=== PATIENT | female | born 1980 | race Caucasian/White ===

== ENCOUNTER 2016-06-10 06:44 | Inpatient (IN) | payer BC, OTHER ==
[2016-06-10] VITALS (48 sets, daily range): BP systolic 107–165; BP diastolic 60–88
[~2016-06-10] VITALS: Ht 172.7 cm; Wt 68.0 kg
[~2016-06-10 06:44] MED LIST: ACET-789 PO; AMT10T PO; BCP PO; D5 LR IV SOLUTION 1,000 ML IV ONE; DICY20TA57 PO; HYDR-3454 PO; IBUP-1773 PO; PNT40TEC PO; TRAM-21 PO
--- OUTSIDE RECORDS SUMMARY | 2016-06-10 06:49 | XMS REPORT | Continuity of Care Document ---
Author Author [facility] Organization [facility] Address Unknown Phone Unavailable Care Team Providers Care Client Care Specialist Name Role Phone PCP Unavailable Source Comments Some departments are not documenting in the electronic medical record. If you do not see the information that you expected, contact Release of Information in the Health Information Management department at [phone] for further assistance in locating additional records.[facility] Active Allergies and Adverse Reactions Not on File Current Medications Not on file Active Problems Not on file Social History Tobacco Use Types Packs/Day Years Used Date Never Assessed Plan of Care Health Maintenance Due Date Last Done Comments Physical (Comprehensive) 1988 Exam Pertussis Vaccine 1992 Tetanus Vaccine 1998 Cervical Cancer Screening 2002 Influenza Vaccine 12/13/2015 Results from Last 3 Months Not on file
[2016-06-10] MEDS ORDERED: MINERAL OIL CONCENTRATE 99.9% 15 ML UDC TOP PRN (07:00)
[2016-06-10] MEDS: D5 LR IV SOLUTION 1,000 ML IV SCH ×3 (07:25→15:12)
[2016-06-10 08:00] LABS: BASOPHILS % (AUTO) 0 % (0-10); EOSINOPHILS # (AUTO) 0.1 10^3/uL (0.0-0.3); EOSINOPHILS % (AUTO) 1 % (0-10); LYMPHOCYTES # (AUTO) 1.7 X 10^3 (1.0-4.0); LYMPHOCYTES % (AUTO) 20 % (12-44); MEAN CORPUSCULAR HEMOGLOBIN 34 PG (25-34); MEAN CORPUSCULAR HGB CONC 36 G/DL (32-36); MEAN CORPUSCULAR VOLUME 97 FL (80-99); MONOCYTES # (AUTO) 0.4 X 10^3 (0.0-1.0); MONOCYTES % (AUTO) 5 % (0-12); NEUTROPHILS # (AUTO) 6.2 X 10^3 (1.8-7.8); NEUTROPHILS % (AUTO) 74 % (42-75); PLATELET COUNT 78 10^3/uL (130-400); RED BLOOD COUNT 3.72 10^6/uL (4.35-5.85); RED CELL DISTRIBUTION WIDTH 13.7 % (10.0-14.5); WHITE BLOOD COUNT 8.4 10^3/uL (4.3-11.0)
[2016-06-10] MEDS ORDERED: OXYTOCIN/NORMAL SALINE 500 ML IV ONE (08:38)
[2016-06-10] MEDS: OXYTOCIN/NORMAL SALINE 500 ML IV SCH ×2 (08:43→19:03)
--- NOTE | 2016-06-10 09:23 | History & Physical-OB ---
OB - Chief Complaint & HPI Date Date of Admission: Date of Admission: Jun 10, 2016 at 6:44 am Chief Complaint/History OB-Reason for Admission/Chief: Induction of Labor Hx : 1 Hx Para: 0 Expected Date of Delivery: Jul 01, 2016 Gestational Age in Weeks: 37 Indication for induction: medical complication Admission Nurse Assessment Rev: Yes History of Labs O pos Antibody neg RI RPR NR HBsAg NR HIV NR GC neg GBS neg Laboratory Tests 06/10/16 07:50: Basophils # (Auto) 0.0, Basophils (%) (Auto) 0, Eosinophils # (Auto) 0.1, Eosinophils (%) (Auto) 1, Hematocrit 36, Hemoglobin 12.8, Lymphocytes # (Auto) 1.7, Lymphocytes (%) (Auto) 20, Mean Corpuscular Hemoglobin 34, Mean Corpuscular Hemoglobin Concent 36, Mean Corpuscular Volume 97, Mean Platelet Volume 12.0H, Monocytes # (Auto) 0.4, Monocytes (%) (Auto) 5, Neutrophils # ( Auto) 6.2, Neutrophils (%) (Auto) 74, Platelet Count 78L, Red Blood Count 3.72L , Red Cell Distribution Width 13.7, White Blood Count 8.4 Allergies and Home Medications Allergies Coded Allergies: NKANo Known Allergies (Verified Allergy, Unknown, 08/12/06) Home Medications 1 TAB PO DAILY (Reported) Acetaminophen with Codeine 1 Each Tablet #50 1 EACH PO Q4H PRN PRN PAIN Prescribed by: ANNA DARNELL on 01/18/1538 Ibuprofen 600 Mg Tablet #60 600 MG PO Q6H Prescribed by: ANNA DARNELL on 01/18/15937 OB - History Hx of Present Care: Yes Ultrasounds: Abnormal US findings (2 vessel umbilical cord) Obstetrical Complications: Other (Gestational thrombocytopenia) Medical Complications: None Delivery History Hx Blood Disorders: No Patient Past Medical History Endometriosis OB - Admission Exam Physical Exam Vitals: Vital Signs 06/10/16 08:52 Temp 98.3 Pulse 117 Resp 18 B/P 112/74 Pulse Ox 96 O2 Delivery Room Air HEENT: NCAT Heart: Rhythm Normal Lungs: Clear Abdomen: Gravid Extremities: Normal Cervical Dilatation: 3cm Effacement: 75% Station: -1 Membranes: Intact Heart Rate: 130's Accelerations: Accelerations Present Decelerations: No Decelerations Short Term Variability: Present Mcc Variability: Average (6-25) Contractions on Admission: 6-10 Minutes Apart Intensity: Moderate Haq Scoring Tool (Modified) Dilation (cm): 3-4cm (2) Effacement (%): 51-79% (2) Descent/Station: -1,0 (2) Cervix Consistency: Soft (2) Cervix Position: Anterior (2) Subtract 1 point for: Nulliparity (-1) Haq Score: 9 Labs Laboratory Tests Test 06/10/16 07:50 Range/Units Basophils # (Auto) 0.0 0.0-0.1 10^3/uL Basophils (%) (Auto) 0 0-10 % Eosinophils # (Auto) 0.1 0.0-0.3 10^3/uL Eosinophils (%) (Auto) 1 0-10 % Hematocrit 36 35-52 % Hemoglobin 12.8 11.5-16.0 G/DL Lymphocytes # (Auto) 1.7 1.0-4.0 X 10^3 Lymphocytes (%) (Auto) 20 12-44 % Mean Corpuscular Hemoglobin 34 25-34 PG Mean Corpuscular Hemoglobin Concent 36 32-36 G/DL Mean Corpuscular Volume 97 80-99 FL Mean Platelet Volume 12.0 H 7.4-10.4 FL Monocytes # (Auto) 0.4 0.0-1.0 X 10^3 Monocytes (%) (Auto) 5 0-12 % Neutrophils # (Auto) 6.2 1.8-7.8 X 10^3 Neutrophils (%) (Auto) 74 42-75 % Platelet Count 78 L 130-400 10^3/uL Red Blood Count 3.72 L 4.35-5.85 10^6/uL Red Cell Distribution Width 13.7 10.0-14.5 % White Blood Count 8.4 4.3-11.0 10^3/uL OB - Assessment/Plan/Diagnosis Assessment Assessment: induction of labor Plan Plan: Induction Induction Method: AROM Discharge Diagnosis Diagnosis: 35 yo @ 37 weeks Gestational thrombocytopenia single umbilical artery GBS neg ANNA DARNELL DO Jun 10, 2016 9:23 am
[2016-06-10] MEDS: HYDROmorphone (DILAUDID) 2 MG/ML VIAL IVP PRN ×2 (11:13→14:13)
[2016-06-10] MEDS ORDERED: CATHETER FLUSH 10 ML SYR IV SCH ×2 (14:00→22:00)
[2016-06-10] MEDS ORDERED: LACTATED RINGERS 1,000 ML IV ONE ×2 (15:03→16:13)
[2016-06-10] MEDS ORDERED: SUFENTA 0.6MCG/ML BUPIVA 0.125 0 ML ONE (15:13)
[2016-06-10] MEDS ORDERED: fentaNYL INJECTION 100 MCG/2 ML AMP ONE (15:29)
[2016-06-10] MEDS ORDERED: BUPIVACAINE 0.25% 30 ML (SENSORCAINE) VIAL ONE (15:29)
[2016-06-10] MEDS ORDERED: LIDOCAINE PF 2% 10 ML (XYLOCAINE) AMP ONE (15:30)
[2016-06-10] MEDS ORDERED: fentaNYL INJECTION 100 MCG/2 ML AMP INJ ONE (16:15)
[2016-06-10] MEDS ORDERED: diphenhydrAMINE 50 MG/ML INJ (BENADRYL) IV PRN (16:15)
[2016-06-10] MEDS ORDERED: ONDANSETRON 4 MG/2 ML (SDV) Z0FRAN IV PRN (16:15)
[2016-06-10] MEDS ORDERED: LIDOCAINE/EPI 1%-1:200,000 (XYLOCAINE) 30 ML VIAL ONE (16:50)
[2016-06-10] MEDS ORDERED: HYDROmorphone (DILAUDID) 2 MG/ML VIAL IVP ONE (18:17)
[2016-06-10] MEDS ORDERED: METHYLERGONOVINE 0.2 MG/ML (METHERGINE) AMP ONE (18:19)
[2016-06-10] MEDS ORDERED: METHYLERGONOVINE 0.2 MG/ML (METHERGINE) AMP IM NR (18:30)
--- NOTE | 2016-06-10 18:32 | OB Labor & Delivery Record ---
L&D History History Expected Date of Delivery: Jul 01, 2016 Gestational Age in Weeks: 37 Hx : 1 Hx Para: 0 Complications Events: Routine care (Gestationa thrombocytopenia, 2 vessel cord) Operative Indications (Cesarea: N/A-Vaginal Delivery Intrapartal Events: None L&D Stage1 Stage One Onset of Labor - Date: Jun 10, 2016 Monitors and Tracing Monitor Mode: External Heart Rate: 135 Station: 0 Hospital Fellow Variability: Moderate (11-25) Short Term Variability: Present Presentation: Vertex Vital Signs VS - Last 72 Hours, by Label 06/10/16 06/10/16 06/10/16 06/10/16 06:45 07:15 08:00 08:23 Temp 96.2 Pulse 121 92 85 94 Resp 20 20 20 18 B/P 107/73 116/75 119/78 121/77 O2 Delivery Room Air Room Air Room Air Room Air 06/10/16 06/10/16 06/10/16 06/10/16 08:40 09:15 09:30 09:45 Temp 96.5 Pulse 75 91 104 Resp 20 18 20 B/P 125/77 128/77 120/81 O2 Delivery Room Air Room Air Room Air Room Air 06/10/16 06/10/16 06/10/16 06/10/16 10:00 10:15 10:15 10:30 Temp 96.4 96.4 Pulse 91 91 79 77 Resp 18 18 20 20 B/P 136/83 136/83 127/81 122/74 O2 Delivery Room Air Room Air Room Air Room Air 06/10/16 06/10/16 06/10/16 06/10/16 10:45 11:00 11:15 11:30 Temp 96.4 Pulse 70 70 79 74 Resp 20 20 20 20 B/P 123/79 123/75 116/80 124/81 O2 Delivery Room Air Room Air Room Air Room Air 06/10/16 06/10/16 06/10/16 06/10/16 11:45 12:05 12:20 12:45 Temp 96.4 96.4 Pulse 73 72 91 91 Resp 20 22 18 18 B/P 122/77 127/74 122/77 122/77 O2 Delivery Room Air Room Air Room Air 06/10/16 06/10/16 06/10/16 06/10/16 13:00 13:15 13:30 13:45 Pulse 70 67 67 67 Resp 20 20 20 20 B/P 133/75 132/72 132/72 132/72 Pulse Ox 100 100 100 O2 Delivery Room Air Room Air Room Air Room Air 06/10/16 06/10/16 06/10/16 06/10/16 14:00 14:15 14:30 15:00 Temp 95.7 Pulse 64 77 76 73 Resp 22 22 22 22 B/P 145/69 128/71 121/70 121/72 Pulse Ox 100 100 96 100 06/10/16 06/10/16 06/10/16 06/10/16 15:15 15:30 15:35 15:37 Pulse 76 76 69 82 Resp 22 22 20 20 B/P 154/81 145/66 132/60 145/66 Pulse Ox 100 100 100 100 06/10/16 15:39 Pulse 93 Resp 20 B/P 141/65 Pulse Ox 97 Rupture of Membranes Spontaneous Ruture of Membrane: No Amniotic Membrane Rupture Time: 08 Amniotic Membrane Fluid Desc.: Clear Vaginal Bleeding Description: Normal Show L&D Stage2 Stage Two Stage II Date: Jun 10, 2016 Monitors and Tracing Monitor Mode: External Heart Rate: 135 Monitor Decelerations: Variable Hospital Fellow Variability: Average (6-10) Short Term Variability: Present Position: Right Occiput Anterior Presentation: Vertex Cord Descript/Complications Cord Vessel Description: 2 Vessels Complications Nuchal cord x 1 Delivery Type Delivery Method: Spontaneous Vaginal Anterior Shoulder: Right Episiotomy/Perineal Laceration Laceraction(s)/Extensions: Yes Episiotomy Description: Midline Location Modifier: Medial Degree (describe repair) midline episiotomy repair in normal fashion Condition of Infant Delivery 1 minute Comment: 8 5 minute Comment: 9 Notes weight pending, skin to skin Condition of Condition of Infant: Living Exam: No Observed Abnormalities Resuscitation Resuscitation: N/A - Spontaneous Resp L&D Stage3 Stage Three Stage III Date: Jun 10, 2016 Pictocin Pitocin Administration mu/min: 6 Pitocin ml/hr: 2 Pitocin Administration Comment: Wide open 30 mu at delivery of placenta Placenta Delivery Placenta Delivery: Spontaneous Delivery Summary Summary blood loss >1000ml: No Vaginal blood loss >500ml: No 400 Attending at delivery: Anna Darnell DO Condition of Delivery Examined: Cervix Examined, Uterus Explored Post Hemorrhage: No Condition of Mother stable Condition of (s) stable ANNA DARNELL DO Jun 10, 2016 18:32
[2016-06-10] MEDS ORDERED: IBUPROFEN 600 MG (MOTRIN) TAB PO ONE (20:03)
[2016-06-10] MEDS ORDERED: WITCH HAZEL(TUCKS) 40 EA JAR TOP PRN (20:15)
[2016-06-10] MEDS ORDERED: BENZOCAINE/MENTHOL (DERMOPLAST) 56 ML CAN TP PRN (20:15)
[2016-06-10] MEDS ORDERED: MEASLES,MUMPS,RUBELLA 1 EA INJ SQ ONE (20:15)
[2016-06-10] MEDS ORDERED: TETANUS,DIPTH,PERTUSS P/F (BOOSTRIX) 0.5 ML VIAL IM ONE (20:15)
[2016-06-10] MEDS: IBUPROFEN 600 MG (MOTRIN) TAB PO SCH (20:26)
[2016-06-10] MEDS ORDERED: APAP 300 MG/CODEINE 30 MG (TYLENOL #3) TAB PO PRN (20:30)
[2016-06-11 00:50] VITALS: BP 107/75
[2016-06-11] MEDS: IBUPROFEN 600 MG (MOTRIN) TAB PO SCH ×3 (02:45→17:48)
[2016-06-11 05:39] LABS: BASOPHILS % (AUTO) 0 % (0-10); EOSINOPHILS % (AUTO) 0 % (0-10); LYMPHOCYTES # (AUTO) 1.7 X 10^3 (1.0-4.0); LYMPHOCYTES % (AUTO) 10 % (12-44); MEAN CORPUSCULAR HEMOGLOBIN 34 PG (25-34); MEAN CORPUSCULAR HGB CONC 35 G/DL (32-36); MEAN CORPUSCULAR VOLUME 97 FL (80-99); MEAN PLATELET VOLUME 11.4 FL (7.4-10.4); MONOCYTES % (AUTO) 6 % (0-12); NEUTROPHILS # (AUTO) 14.4 X 10^3 (1.8-7.8); NEUTROPHILS % (AUTO) 84 % (42-75); PLATELET COUNT 92 10^3/uL (130-400); RED BLOOD COUNT 3.16 10^6/uL (4.35-5.85); RED CELL DISTRIBUTION WIDTH 13.8 % (10.0-14.5); WHITE BLOOD COUNT 17.1 10^3/uL (4.3-11.0)
[2016-06-11 05:45] VITALS: BP 113/71
[2016-06-11 07:55] VITALS: BP 104/67
--- NOTE | 2016-06-11 08:01 | Postpartum Progress Note ---
Note Note Day # 1 Subjective: Patient is without complaints. Ambulating, voiding. Tolerating a regular diet without nausea or vomiting. Normal lochia. Pain is well controlled with oral pain medications. Wants to pump, bottle feeding. Objective: Vital Sign - Last 12Hours 06/10/16 06/11/16 06/11/16 20:15 00:50 05:45 Temp 98.8 97.9 Pulse 31 107 108 Resp 18 18 18 B/P 119/70 107/75 113/71 Pulse Ox 97 98 O2 Delivery Room Air Room Air Room Air Intake and Output 06/11/16 00:00 Intake Total 1500 ml Balance 1500 ml Physical Exam: General - Alert and oriented, no apparent distress Abdomen - Soft, appropriately tender to palpation, non-distended, fundus firm at umbilicus Extremities - no edema, negative Anastasiia's bilaterally Laboratory Tests 06/11/16 05:14: Basophils # (Auto) 0.0, Basophils (%) (Auto) 0, Eosinophils # (Auto) 0.0, Eosinophils (%) (Auto) 0, Hematocrit 31L, Hemoglobin 10.8L, Lymphocytes # (Auto ) 1.7, Lymphocytes (%) (Auto) 10L, Mean Corpuscular Hemoglobin 34, Mean Corpuscular Hemoglobin Concent 35, Mean Corpuscular Volume 97, Mean Platelet Volume 11.4H, Monocytes # (Auto) 1.0, Monocytes (%) (Auto) 6, Neutrophils # ( Auto) 14.4H, Neutrophils (%) (Auto) 84H, Platelet Count 92L, Red Blood Count 3.16L, Red Cell Distribution Width 13.8, White Blood Count 17.1H Assessment: 36 y/o post- day # 1, status post spontaneous vaginal delivery. Recovering well, hemodynamically stable Acute blood loss anemia Hgb 10.8 Gestational thrombocytopenia, improved (92K this AM, up from 78K on admission) Plan: Routine care. Encourage breast feeding. Encourage ambulation. Ferrous sulfate supplementation. Plan for discharge tomorrow Vitals - Labs Vital Signs - I&O Vital Signs Date Time Temp Pulse Resp B/P Pulse Ox O2 Delivery O2 Flow Rate FiO2 06/11/16 05:45 97.9 108 18 113/71 98 Room Air 06/11/16 00:50 98.8 107 18 107/75 97 Room Air 06/10/16 20:15 31 18 119/70 Room Air 06/10/16 20:00 93 18 128/76 Room Air 06/10/16 19:35 98.1 87 18 128/76 Room Air 06/10/16 19:20 98.6 107 18 119/76 Room Air 06/10/16 19:17 101 18 111/69 Room Air 06/10/16 19:02 100 18 113/71 Room Air 06/10/16 18:32 121 18 119/74 Room Air 06/10/16 18:17 97.6 120 18 126/70 Room Air 06/10/16 18:12 114 18 118/65 Room Air 06/10/16 18:03 96.5 116 18 117/63 Room Air 06/10/16 17:40 113 20 165/88 Room Air 06/10/16 17:20 Room Air 06/10/16 17:00 88 20 128/67 Room Air 06/10/16 16:45 81 20 138/82 100 Room Air 06/10/16 16:30 71 20 128/76 100 Room Air 06/10/16 16:10 96.4 77 20 132/81 100 Room Air 06/10/16 15:39 93 20 141/65 97 06/10/16 15:37 82 20 145/66 100 06/10/16 15:35 69 20 132/60 100 06/10/16 15:30 76 22 145/66 100 06/10/16 15:15 76 22 154/81 100 06/10/16 15:00 73 22 121/72 100 06/10/16 14:30 76 22 121/70 96 06/10/16 14:15 77 22 128/71 100 06/10/16 14:00 95.7 64 22 145/69 100 06/10/16 13:45 67 20 132/72 100 Room Air 06/10/16 13:30 67 20 132/72 100 Room Air 06/10/16 13:15 67 20 132/72 100 Room Air 06/10/16 13:00 70 20 133/75 Room Air 06/10/16 12:45 96.4 91 18 122/77 Room Air 06/10/16 12:20 96.4 91 18 122/77 Room Air 06/10/16 12:05 72 22 127/74 06/10/16 11:45 73 20 122/77 Room Air 06/10/16 11:30 96.4 74 20 124/81 Room Air 06/10/16 11:15 79 20 116/80 Room Air 06/10/16 11:00 70 20 123/75 Room Air 06/10/16 10:45 70 20 123/79 Room Air 06/10/16 10:30 77 20 122/74 Room Air 06/10/16 10:15 79 20 127/81 Room Air 06/10/16 10:15 96.4 91 18 136/83 Room Air 06/10/16 10:00 96.4 91 18 136/83 Room Air 06/10/16 09:45 104 20 120/81 Room Air 06/10/16 09:30 91 18 128/77 Room Air 06/10/16 09:15 96.5 75 20 125/77 Room Air 06/10/16 08:40 Room Air 06/10/16 08:23 94 18 121/77 Room Air 06/10/16 08:00 85 20 119/78 Room Air I & O 06/11/16 07:00 Intake Total 1500 ml Balance 1500 ml Labs Laboratory Tests 06/11/16 05:14: Basophils # (Auto) 0.0, Basophils (%) (Auto) 0, Eosinophils # (Auto) 0.0, Eosinophils (%) (Auto) 0, Hematocrit 31L, Hemoglobin 10.8L, Lymphocytes # (Auto ) 1.7, Lymphocytes (%) (Auto) 10L, Mean Corpuscular Hemoglobin 34, Mean Corpuscular Hemoglobin Concent 35, Mean Corpuscular Volume 97, Mean Platelet Volume 11.4H, Monocytes # (Auto) 1.0, Monocytes (%) (Auto) 6, Neutrophils # ( Auto) 14.4H, Neutrophils (%) (Auto) 84H, Platelet Count 92L, Red Blood Count 3.16L, Red Cell Distribution Width 13.8, White Blood Count 17.1H ISIAH NEVAREZ MD Jun 11, 2016 08:01
[2016-06-11] MEDS ORDERED: FERR-74 PO (08:03)
[2016-06-11] MEDS ORDERED: DOCU-143 PO (08:03)
[2016-06-11] MEDS ORDERED: ACET1TAB43 PO (08:03)
[2016-06-11] MEDS ORDERED: IBUP-1773 PO (08:03)
--- NOTE | 2016-06-11 08:04 | Discharge Inst-Women's Service ---
Discharge Inst-Women's Serv Depart Medication/Instructions New, Converted or Re-Newed RX: RX on Chart (and transmitted to pharmacy) Final Diagnosis , gestational thrombocytopenia Consults/Follow Up Additional Follow Up: Yes Orders/Referrals [address] Warren Activity Activity: Activity as Tolerated Driving Instructions: You May Drive (unless taking narcotic pain medications) NO SMOKING: NO SMOKING Nothing Inside Vagina: No Douching, No [place], No Tampons Diet Discharge Diet: No Restrictions Symptoms to Report to : Bleeding Excessive, Pain Increased, Fever Over 101 Degrees F, Pain/Pressure in Chest, Vaginal Bleeding Increase, Dizziness/Fainting , Nausea/Vomiting, Shortness of Breath For Any Problems or Questions: Contact Your Physician Skin/Wound Care Bathing Instructions: ISIAH Aguilera MD Jun 11, 2016 08:04
[2016-06-11] MEDS: FERROUS SULF 325 MG (IRON) TAB PO SCH (11:21)
--- NOTE | 2016-06-11 12:38 | Anesthesia-Regional Post-Op ---
Regional Patient Condition Mental Status: Alert, Oriented x3 Circulation: Same as Pre-Op Headache: Absent Sensation: Full Recovery Motor Block: Absent Post Op Complications Complications None Follow Up Care/Instructions Patient Instructions None needed. Anesthesia/Patient Condition Patient is doing well, no complaints, stable vital signs, no apparent adverse anesthesia problems. No complications reported per nursing. RANJIT RUVALCABA CRNA Jun 11, 2016 12:38
--- NOTE | 2016-06-11 13:06 | Anesthesia-Regional Post-Op ---
Regional Patient Condition Mental Status: Alert, Oriented x3 Circulation: Same as Pre-Op Headache: Absent Sensation: Full Recovery Motor Block: Absent Post Op Complications Complications None Follow Up Care/Instructions Patient Instructions None needed. Anesthesia/Patient Condition Patient is doing well, no complaints, stable vital signs, no apparent adverse anesthesia problems. No complications reported per nursing. DAVID RIVER CRNA Jun 11, 2016 13:06
[2016-06-11 14:15] VITALS: BP 109/74
[2016-06-11 20:00] VITALS: BP 131/79
[2016-06-11] MEDS ORDERED: DOCUSATE SODIUM 100 MG (COLACE) CAP PO ONE (21:36)
[2016-06-11] MEDS: APAP 300 MG/CODEINE 30 MG (TYLENOL #3) TAB PO PRN (21:41)
[2016-06-11] MEDS: DOCUSATE SODIUM 100 MG (COLACE) CAP PO SCH (21:41)
[2016-06-12 01:57] VITALS: BP 112/68
[2016-06-12] MEDS: IBUPROFEN 600 MG (MOTRIN) TAB PO SCH ×3 (01:57→08:48)
[2016-06-12] MEDS: APAP 300 MG/CODEINE 30 MG (TYLENOL #3) TAB PO PRN (05:44)
[2016-06-12 08:30] VITALS: BP 103/62
[2016-06-12] MEDS: DOCUSATE SODIUM 100 MG (COLACE) CAP PO SCH (08:47)
[2016-06-12] MEDS: FERROUS SULF 325 MG (IRON) TAB PO SCH (08:47)
--- NOTE | 2016-06-12 10:14 | Progress Note-Standard ---
Standard Progress Note Progress Notes/Assess & Plan Progress/Assessment & Plan Subjective: Patient is without complaints. Ambulating, voiding. Tolerating a regular diet without nausea or vomiting. Normal lochia. Pain is well controlled with oral pain medications. Wants to pump, bottle feeding. Objective: Vital Sign - Last 12Hours 06/12/16 06/12/16 01:57 08:30 Temp 97.8 98.2 Pulse 96 92 Resp 20 18 B/P 112/68 103/62 Pulse Ox 98 100 O2 Delivery Room Air Room Air Physical Exam: General - Alert and oriented, no apparent distress Abdomen - Soft, appropriately tender to palpation, non-distended, fundus firm at umbilicus Extremities - no edema, negative Anastasiia's bilaterally Assessment: 36 y/o post- day # 2, status post spontaneous vaginal delivery. Recovering well, hemodynamically stable Acute blood loss anemia Hgb 10.8 Gestational thrombocytopenia, improved (92K this AM, up from 78K on admission) Plan: Routine care. Encourage breast feeding. Encourage ambulation. Ferrous sulfate supplementation. Plan for discharge today ANNA DARNELL DO Jun 12, 2016 10:13 am
[2016-06-12 12:25] VITALS: BP 103/62
== END 2016-06-12 12:25 | disposition home or self-care (01) | DRG 775 ==
LOC: LDRP 06:44
PROVIDERS: ADMIT Obstetrics & Gynecology; ATTEND Obstetrics & Gynecology
PROC: 0W8NXZZ Division of Female Perineum, External Approach (ICD-10-PCS; principal; 2016-06-10)
PROC: 10907ZC Drainage of Amniotic Fluid, Therapeutic from Products of Conception, Via Natural or Artificial Opening (ICD-10-PCS; 2016-06-10)
PROC: 10E0XZZ Delivery of Products of Conception, External Approach (ICD-10-PCS; 2016-06-10)
DX: O99.12 Other diseases of the blood and blood-forming organs and certain disorders involving the immune mechanism complicating childbirth (principal); D69.6 Thrombocytopenia, unspecified; O69.81X0 Labor and delivery complicated by cord around neck, without compression, not applicable or unspecified; Z3A.37 37 weeks gestation of pregnancy; Z37.0 Single live birth; O90.81 Anemia of the puerperium; D62 Acute posthemorrhagic anemia
CPT/HCPCS: 36415; 85025; 86850; 86900; 86901

== ENCOUNTER 2016-07-13 06:58 | Emergency (ER) | payer OTHER ==
[~2016-07-13] VITALS: Ht 172.7 cm; Wt 68.0 kg
[~2016-07-13 06:58] MED LIST changes: +ACET1TAB43 PO; -D5 LR IV SOLUTION 1,000 ML IV ONE; +DOCU-143 PO; +FERR-74 PO
[2016-07-13] MEDS ORDERED: NS IV 1000 ML 1,000 ML IV SCH (07:45)
[2016-07-13] MEDS ORDERED: fentaNYL INJECTION 100 MCG/2 ML AMP IVP ONE ×2 (07:45→08:30)
[2016-07-13 07:49] LABS: BASOPHILS % (AUTO) 0 % (0-10); EOSINOPHILS # (AUTO) 0.1 10^3/uL (0.0-0.3); EOSINOPHILS % (AUTO) 3 % (0-10); LYMPHOCYTES # (AUTO) 1.4 X 10^3 (1.0-4.0); LYMPHOCYTES % (AUTO) 38 % (12-44); MEAN CORPUSCULAR HEMOGLOBIN 33 PG (25-34); MEAN CORPUSCULAR HGB CONC 34 G/DL (32-36); MEAN CORPUSCULAR VOLUME 95 FL (80-99); MEAN PLATELET VOLUME 11.4 FL (7.4-10.4); MONOCYTES # (AUTO) 0.2 X 10^3 (0.0-1.0); MONOCYTES % (AUTO) 5 % (0-12); NEUTROPHILS % (AUTO) 53 % (42-75); PLATELET COUNT 99 10^3/uL (130-400); RED BLOOD COUNT 3.91 10^6/uL (4.35-5.85); RED CELL DISTRIBUTION WIDTH 12.1 % (10.0-14.5); WHITE BLOOD COUNT 3.7 10^3/uL (4.3-11.0)
--- NOTE | 2016-07-13 07:53 | ED GU-Female ---
General Chief Complaint: -Female Stated Complaint: PASSED LARGE BLOOD CLOT Nursing Triage Note: PT STATES BEING 5 WKS POST , STARTED PASSING BLOOD MORE THAN A NORMAL PERIOD YESTERDAY, SPOKE WITH HER DR AND WAS GOING TO GO IN THURSDAY. THIS MORNING PT PASSED A CLOT ABOUT THE SIZE OF A BASEBALL, NO PAIN. Nursing Sepsis Screen: No Definite Risk Source: patient, family History of Present Illness Time seen by provider: 07:48 Initial Comments This 36 yo white female presents with persistent vaginal bleeding post- 5wks from a normal and vaginal delivery with Dr. Warren. The patient has had waxing and waning vaginal bleeding since her delivery. The patient's platlet count is normally low (150k). She was 70k p delivery but had increased before discharge from hospital to 90k. There is no family history of bleeding disorder. Allergies and Home Medications Allergies Coded Allergies: NKANo Known Allergies (Verified Allergy, Unknown, 08/12/06) Home Medications No Active Prescriptions or Reported Meds Constitutional: No chills, No fever EENTM: No blurred vision Respiratory: No cough Cardiovascular: No chest pain Gastrointestinal: No diarrhea, No vomiting Genitourinary: denies burning, denies discharge : No Musculoskeletal: No back pain Skin: No rash Psychiatric/Neurological: No Symptoms Reported Endocrine: No Symptoms Reported Hematologic/Lymphatic: No Symptoms Reported Past Nmnphba-[id number]-[id number] Hx Patient Social History Alcohol Use: Rarely Uses Recreational Drug Use: No Smoking Status: Never a Smoker Recent Foreign Travel: Yes Contact w/Someone Who Travel: Yes Recent Infectious Disease Expo: No Recent Hopitalizations: Yes (5 WKS POST ) Immunizations Up To Date PED Vaccines UTD: Yes Date of Influenza Vaccine: Mar 13, 2016 Seasonal Allergies Seasonal Allergies: No Surgeries HX Surgeries: Yes (LEFT ANKLE X2, DENTAL, dxls, EXPLOR ABD) Surgeries: Appendectomy Respiratory Hx Respiratory Disorders: No Cardiovascular Hx Cardiac Disorders: No Neurological Hx Neurological Disorders: No Reproductive System : No (5 WKS POST ) Hx Reproductive Disorders: No Sexually Transmitted Disease: No HIV/AIDS: No Female Reproductive Disorders: Denies, Endometriosis Genitourinary Hx Genitourinary Disorders: No Gastrointestinal Hx Gastrointestinal Disorders: No Musculoskeletal Hx Musculoskeletal Disorders: No Endocrine Hx Endocrine Disorders: No HEENT HX ENT Disorders: No Loss of Vision: Denies Hearing Impairment: Denies Cancer Hx Cancer: No Psychosocial Hx Psychiatric Problems: No Integumentary HX Skin/Integumentary Disorder: No Blood Transfusions Hx Blood Disorders: No Reviewed Nursing Assessment Reviewed/Agree w Nursing PMH: Yes Family Medical History Family Medial History: Hypertension 19 FATHER (50) Thyroid disease G8 SISTER (25) Physical Exam Vital Signs Vital Sign - Last 12Hours 07/13/16 07:06 Temp 96.7 Pulse 97 Resp 20 B/P (MAP) 125/86 Pulse Ox 100 O2 Delivery Room Air Capillary Refill : Less Than 3 Seconds General Appearance: WD/WN, no apparent distress HEENT: normal ENT inspection Neck: normal inspection Cardiovascular: regular rate, rhythm Respiratory: lungs clear, normal breath sounds Gastrointestinal: normal bowel sounds, non tender Genital/Rectal: tenderness, other (pelvic exam demonstrates a episiotomy in the midline that is healing well but is hog tender. The os is open with a small amount of mucinous tissue protruding from the os. The uterus is not particularly enlarged or tender. No significant adnexal masses were appreciated on bimanual exam. Cultures were obtained.) Back: normal inspection Extremities: normal range of motion, non-tender, normal inspection Progress/Results/Core Measures Results/Orders Lab Results Laboratory Tests Test 07/13/16 07:40 07/13/16 08:25 Range/Units White Blood Count 3.7 L 4.3-11.0 10^3/uL Red Blood Count 3.91 L 4.35-5.85 10^6/uL Hemoglobin 12.8 11.5-16.0 G/DL Hematocrit 37 35-52 % Mean Corpuscular Volume 95 80-99 FL Mean Corpuscular Hemoglobin 33 25-34 PG Mean Corpuscular Hemoglobin Concent 34 32-36 G/DL Red Cell Distribution Width 12.1 10.0-14.5 % Platelet Count 99 L 130-400 10^3/uL Mean Platelet Volume 11.4 H 7.4-10.4 FL Neutrophils (%) (Auto) 53 42-75 % Lymphocytes (%) (Auto) 38 12-44 % Monocytes (%) (Auto) 5 0-12 % Eosinophils (%) (Auto) 3 0-10 % Basophils (%) (Auto) 0 0-10 % Neutrophils # (Auto) 2.0 1.8-7.8 X 10^3 Lymphocytes # (Auto) 1.4 1.0-4.0 X 10^3 Monocytes # (Auto) 0.2 0.0-1.0 X 10^3 Eosinophils # (Auto) 0.1 0.0-0.3 10^3/uL Basophils # (Auto) 0.0 0.0-0.1 10^3/uL Prothrombin Time 14.2 12.2-14.7 SEC INR Comment 1.1 0.8-1.4 Sodium Level 143 135-145 MMOL/L Potassium Level 3.8 3.6-5.0 MMOL/L Chloride Level 109 H 98-107 MMOL/L Carbon Dioxide Level 24 21-32 MMOL/L Anion Gap 10 5-14 MMOL/L Blood Urea Nitrogen 9 7-18 MG/DL Creatinine 1.07 0.60-1.30 MG/DL Estimat Glomerular Filtration Rate 58 BUN/Creatinine Ratio 8 Glucose Level 89 70-105 MG/DL Calcium Level 9.1 8.5-10.1 MG/DL Total Bilirubin 0.5 0.1-1.0 MG/DL Aspartate Amino Transf (AST/SGOT) 15 5-34 U/L Alanine Aminotransferase (ALT/SGPT) 15 0-55 U/L Alkaline Phosphatase 77 40-136 U/L Total Protein 6.5 6.4-8.2 G/DL Albumin 4.0 3.2-4.5 G/DL Human Chorionic Gonadotropin, Quant 17 H <5 MIU/ML Urine Color YELLOW Urine Clarity SLIGHTLY CLOUDY Urine pH 5 5-9 Urine Specific Cuthbert 1.020 1.016-1.022 Urine Protein 1+ H NEGATIVE Urine Glucose (UA) NEGATIVE NEGATIVE Urine Ketones NEGATIVE NEGATIVE Urine Nitrite NEGATIVE NEGATIVE Urine Bilirubin NEGATIVE NEGATIVE Urine Urobilinogen NORMAL NORMAL MG/DL Urine Leukocyte Esterase 1+ H NEGATIVE Urine RBC (Auto) 5+ H NEGATIVE Urine RBC 25-50 H /HPF Urine WBC RARE /HPF Urine Squamous Epithelial Cells 10-25 H /HPF Urine Crystals NONE /LPF Urine Bacteria TRACE /HPF Urine Casts NONE /LPF Urine Mucus NEGATIVE /LPF Urine Culture Indicated NO Urine Test POSITIVE NEGATIVE My Orders Orders - ISRAEL HARMON MD Cbc With Automated Diff (07/13/16 07:39) Comprehensive Metabolic Panel (07/13/16 07:39) Protime With Inr (07/13/16 07:39) Fentanyl Injection (Sublimaze Injection (07/13/16 07:45) Ns Iv 1000 Ml (Sodium Chloride 0.9%) (07/13/16 07:45) Ua Culture If Indicated (07/13/16 07:59) Hcg,Qualitative Urine (07/13/16 07:59) Azithromycin Injection (Zithromax Inject (07/13/16 08:00) Fentanyl Injection (Sublimaze Injection (07/13/16 08:30) Hcg,Quantitative (07/13/16 08:40) Us Pelvic (Non Ob)93393 (07/13/16 07:40) Methylergonovine Tablet (Methergine Tabl (07/13/16 21:00) Ibuprofen Tablet (Motrin Tablet) (07/13/16 09:30) Medications Given in ED Current Medications Medications Dose Ordered Sig/[place] Route Start Time Stop Time Status Last Admin Dose Admin Azithromycin 1000 mg/Sodium Chloride 250 ml @ 250 mls/hr ONCE ONCE IV 07/13/16 08:00 07/13/16 08:59 DC 07/13/16 08:47 250 MLS/HR Fentanyl Citrate 50 mcg ONCE ONCE IVP 07/13/16 07:45 07/13/16 07:46 DC 07/13/16 07:50 50 MCG Fentanyl Citrate 50 mcg ONCE ONCE IVP 07/13/16 08:30 07/13/16 08:31 DC 07/13/16 08:29 50 MCG Vital Signs/I&O Vital Sign - Last 12Hours 07/13/16 07:06 Temp 96.7 Pulse 97 Resp 20 B/P (MAP) 125/86 Pulse Ox 100 O2 Delivery Room Air Blood Pressure Mean: 99 Progress Note : Time: 07:57 Progress Note I discussed patient's presentation with Dr. Villa. He recommended a gram of azithromycin IV for possible chlamydia. Ordered lab tests include platelet count and INR. Were waiting the results of the pelvic ultrasound. 935 a.m. The patient's ultrasound demonstrated 3.5 cm of retained blood products within the uterus. After consultation with the patient received 0.2 milligrams of Methergine orally 2 by one hour. The patient was asked to follow-up with Dr. Warren tomorrow. I gave her a small amount of tramadol for pain. She will use ibuprofen first 600 mg every 6 hours. Departure Impression Impression: Primary Impression: bleeding Qualified Codes: O72.1 - Other immediate hemorrhage Disposition: 01 HOME, SELF-CARE Condition: Improved Departure-Patient Inst. Decision time for Depature: 09:40 Referrals: BRIAN WILL MD (PCP) Primary Care Physician ANNA WARREN DO (Family) Primary Care Physician Add. Discharge Instructions: Follow-up with your level vial inside grinder tomorrow. Rest at home today. Return if any problems today. Motrin and/or Tramadol for pain. All discharge instructions reviewed with patient and/or family. Voiced understanding. Scripts No Active Prescriptions or Reported Meds ISRAEL HARMON MD Jul 13, 2016 07:53
[2016-07-13 07:59] LABS: INR 1.1 (0.8-1.4); PROTHROMBIN TIME PATIENT 14.2 SEC (12.2-14.7)
[2016-07-13] MEDS ORDERED: NS IV ONE (08:00)
[2016-07-13] MEDS ORDERED: AZITHROMYCIN IV ONE (08:00)
[2016-07-13 08:10] LABS: BILIRUBIN,TOTAL 0.5 MG/DL (0.1-1.0); CALCIUM 9.1 MG/DL (8.5-10.1); CREATININE SERUM 1.07 MG/DL (0.60-1.30); POTASSIUM 3.8 MMOL/L (3.6-5.0); TOTAL PROTEIN 6.5 G/DL (6.4-8.2)
[2016-07-13 08:36] LABS: BILIRUBIN,URINE NEGATIVE (NEGATIVE); KETONES,URINE NEGATIVE (NEGATIVE); LEUKOCYTE ESTERASE ,URINE 1+ (NEGATIVE); NITRITE,URINE NEGATIVE (NEGATIVE); PH,URINE 5 (5-9); PROTEIN,URINE 1+ (NEGATIVE); UROBILINOGEN,URINE NORMAL (NORMAL)
[2016-07-13 08:48] LABS: WBC,URINE RARE /HPF
--- NOTE | 2016-07-13 09:03 | Diagnostic Imaging Report ---
PROCEDURE: US PELVIC (NON OB) TECHNIQUE: Multiple real-time grayscale images were obtained over the pelvis in various projections transabdominally. IMPRESSION: Bleeding, passing large blood clots Comparison: December 28, 2014. Findings: The uterus is mildly enlarged measuring 10.6 x 7.9 x 6.3 cm. The endometrial stripe appears significantly thickened measuring up to 3.7 cm. Additionally, this appears to be slightly hyperemic. The bilateral ovaries were unable to be visualized. No abnormal adnexal mass lesion seen. No significant free fluid. IMPRESSION: Significant thickening of the endometrium with associated hyperechoic material measuring up to 3.7 cm. Findings are felt to relate to retained blood products. Dictated by: Dictated on workstation # [id number]
[2016-07-13] MEDS ORDERED: IBUPROFEN 600 MG (MOTRIN) TAB PO ONE (09:30)
[2016-07-13 10:00] VITALS: BP 100/71
[2016-07-13] MEDS ORDERED: METHYLERGONOVINE 0.2 MG (MEHTERGINE) TAB PO ONE (21:00)
--- OUTSIDE RECORDS SUMMARY | 2016-08-05 11:43 | XMS REPORT | Continuity of Care Document ---
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 If you do not see the information that you expected, contact Release of Information in the Health Information Management department at [phone] for further assistance in locating additional records.[facility] Active Allergies and Adverse Reactions Not on File Current Medications Not on file Active Problems Not on file Social History Tobacco Use Types Packs/Day Years Used Date Never Assessed Plan of Care Health Maintenance Due Date Last Done Comments Physical (Comprehensive) 1988 Exam Pertussis Vaccine 1992 Tetanus Vaccine 1998 Cervical Cancer Screening 2002 Influenza Vaccine 12/12/2016 Results from Last 3 Months Not on file
--- OUTSIDE RECORDS SUMMARY | 2016-08-05 11:44 | XMS REPORT | Continuity of Care Document ---
Author Author [facility] Organization [facility] Address Unknown Phone Unavailable Allergies Active Description Code Type Severity Reaction Onset Reported/Identified Relationship to Patient Clinical Status Yes NKANo Known Allergies NKA Miscellaneous Allergy Unknown N/ A 08/12/2006 Medications Problems Date Dx Coded Attending Type Code Diagnosis Diagnosed By 05/23/2013 CAROLYN SWANSON, KRISTEN Jones Ot 540.9 07/06/2014 Ot 789.00 07/14/2014 Ot 789.09 09/08/2014 CAROLYN SWANSON, KRISTEN Jones Ot 789.00 09/08/2014 CAROLYN SWANSON, KRISTEN Jones Ot V72.63 09/08/2014 CAROLYN SWANSON, KRISTEN Jones Ot V74.8 09/08/2014 CAROLYN SWANSON, KRISTEN Jones Ot 701.4 09/27/2014 CAROLYN SWANSON, KRISTEN Jones Ot 789.00 09/27/2014 CAROLYN SWANSON, KRISTEN Jones Ot V72.63 09/27/2014 CAROLYN SWANSON, KRISTEN Jones Ot V74.8 10/20/2014 CRICKET SWANSON, ANASTASIA Lindquist Ot 724.5 10/20/2014 CRICKET SWANSON, ANASTASIA Lindquist Ot 789.00 10/20/2014 Ot 789.00 10/20/2014 Ot 789.09 11/15/2014 CAROLYN SWANSON, KRISTEN Jones Ot 789.00 11/15/2014 CAROLYN SWANSON, KRISTEN Jones Ot V72.63 11/15/2014 CAROLYN SWANSON, KRISTEN Jones Ot V74.8 01/12/2015 NICOLETTE SWANSON, BRIAN Navarro Ot 625.9 01/18/2015 ANNA DARNELL DO S Ot N73.6 FEMALE PELVIC PERITONEAL ADHESIONS (POST 01/18/2015 ANNA DARNELL DO S Ot N80.1 ENDOMETRIOSIS OF OVARY 01/18/2015 ANNA DARNELL DO S Ot N80.3 ENDOMETRIOSIS OF PELVIC PERITONEUM 02/07/2015 ANNA DARNELL DO S Ot R10.32 02/07/2015 ANNA DARNELL DO S Ot Z01.812 02/07/2015 MANN DAY ANNA Yip Ot Z11.2 06/10/2016 MANN DAY ANNA Yip Ot R10.32 LEFT LOWER QUADRANT PAIN 06/10/2016 MANN DAY ANNA Yip Shamar Z01.812 ENCOUNTER FOR PREPROCEDURAL LABORATORY E 06/10/2016 ANNA DARNELL DO Ot Z11.2 ENCOUNTER FOR SCREENING FOR OTHER BACTER 06/12/2016 MANN DAY ANNA Theodora Ot D62 ACUTE POSTHEMORRHAGIC ANEMIA 06/12/2016 MANN DAY ANNA Yip Ot D69.6 THROMBOCYTOPENIA, UNSPECIFIED 06/12/2016 MANN DAY ANNA Yip Ot O69.81X0 LABOR AND DEL COMP BY CORD AROUND NECK , 06/12/2016 MANN DAY ANNA Yip Shamar O90.81 ANEMIA OF THE PUERPERIUM 06/12/2016 MANN DAY ANNA Yip Shamar O99.12 OTH DIS OF THE BLD/BLD-FORM ORG/IMMUN ME 06/12/2016 MANN DAY ANNA Yip Shamar Z37.0 SINGLE LIVE 06/12/2016 MANN DAY ANNA Yip Ot Z3A.37 37 WEEKS GESTATION OF 07/15/2016 EDEN SWANSON, ISRAEL Yip Ot N93.9 ABNORMAL UTERINE AND VAGINAL BLEEDING, U 07/15/2016 ISRAEL HARMON MD, Ot O72.2 DELAYED AND SECONDARY HEMORRH Procedures Code Description Performed By Performed On [id number] DIVISION OF FEMALE PERINEUM, EXTERNAL AP 06/10/2016 28593WG DRAINAGE OF AMNIOTIC FL, THERAP FROM POC 06/10/2016 37T2GWA DELIVERY OF PRODUCTS OF CONCEPTION, EXTE 06/10/2016 Results Test Result Range Complete blood count (CBC) with automated white blood cell (WBC) differential - 06/10/16 07:50 Blood leukocytes automated count (number/volume) 8.4 10*3/ uL 4.3-11.0 Blood erythrocytes automated count (number/volume) 3.72 10*6 /uL 4.35-5.85 Venous blood hemoglobin measurement (mass/volume) 12.8 g/dL 11.5-16.0 Blood hematocrit (volume fraction) 36 % 35-52 Automated erythrocyte mean corpuscular volume 97 [foz_us] 80-99 Automated erythrocyte mean corpuscular hemoglobin (mass per erythrocyte) 34 pg 25-34 Automated erythrocyte mean corpuscular hemoglobin concentration measurement ( mass/volume) 36 g/dL 32-36 Automated erythrocyte distribution width ratio 13.7 % 10.0-14.5 Automated blood platelet count (count/volume) 78 10*3/uL 130-400 Automated blood platelet mean volume measurement 12.0 [foz_ us] 7.4-10.4 Automated blood neutrophils/100 leukocytes 74 % 42-75 Automated blood lymphocytes/100 leukocytes 20 % 12-44 Blood monocytes/100 leukocytes 5 % 0-12 Automated blood eosinophils/100 leukocytes 1 % 0-10 Automated blood basophils/100 leukocytes 0 % 0-10 Blood neutrophils automated count (number/volume) 6.2 10*3 1.8-7.8 Blood lymphocytes automated count (number/volume) 1.7 10*3 1.0-4.0 Blood monocytes automated count (number/volume) 0.4 10*3 0.0-1.0 Automated eosinophil count 0.1 10*3/uL 0.0-0.3 Automated blood basophil count (count/volume) 0.0 10*3/uL 0.0-0.1 Blood type T Indirect antibody screen panel - 06/10/16 07:50 ABO+Rh group OP NRG Transfusion band number [id number] Blood group antibody screen NEGATIVE [facility] Complete blood count (CBC) with automated white blood cell (WBC) differential - 06/11/16 05:14 Blood leukocytes automated count (number/volume) 17.1 10*3/ uL 4.3-11.0 Blood erythrocytes automated count (number/volume) 3.16 10*6 /uL 4.35-5.85 Venous blood hemoglobin measurement (mass/volume) 10.8 g/dL 11.5-16.0 Blood hematocrit (volume fraction) 31 % 35-52 Automated erythrocyte mean corpuscular volume 97 [foz_us] 80-99 Automated erythrocyte mean corpuscular hemoglobin (mass per erythrocyte) 34 pg 25-34 Automated erythrocyte mean corpuscular hemoglobin concentration measurement ( mass/volume) 35 g/dL 32-36 Automated erythrocyte distribution width ratio 13.8 % 10.0-14.5 Automated blood platelet count (count/volume) 92 10*3/uL 130-400 Automated blood platelet mean volume measurement 11.4 [foz_ us] 7.4-10.4 Automated blood neutrophils/100 leukocytes 84 % 42-75 Automated blood lymphocytes/100 leukocytes 10 % 12-44 Blood monocytes/100 leukocytes 6 % 0-12 Automated blood eosinophils/100 leukocytes 0 % 0-10 Automated blood basophils/100 leukocytes 0 % 0-10 Blood neutrophils automated count (number/volume) 14.4 10*3 1.8-7.8 Blood lymphocytes automated count (number/volume) 1.7 10*3 1.0-4.0 Blood monocytes automated count (number/volume) 1.0 10*3 0.0-1.0 Automated eosinophil count 0.0 10*3/uL 0.0-0.3 Automated blood basophil count (count/volume) 0.0 10*3/uL 0.0-0.1 Bacteria identification in genital specimen by aerobe culture - 07/13/16 07:30 FREE TEXT EXTERNAL AT PRESENT NRG QUANTITY OF GROWTH Isolated NRG Bacteria identification in genital specimen by aerobe culture [id number] NRG Microscopic examination by FARZANEH preparation - 07/13/16 07:30 Microscopic examination by FARZANEH preparation TNP NRG Microscopic examination by wet preparation - 07/13/16 07:30 WET PREP RESULTS NO CLUE CELLS OBSERVED NRG Neisseria gonorrhoeae DNA detection by probe and signal amplification method - 07/13/16 07:30 Gonorrhea amp DNA-urine Negative Negative Chlamydia trachomatis DNA detection by probe and signal amplification method - 07/13/16 07:30 Chlamydia trachomatis DNA detection by probe and target amplification method Negative Negative Complete blood count (CBC) with automated white blood cell (WBC) differential - 07/13/16 07:40 Blood leukocytes automated count (number/volume) 3.7 10*3/ uL 4.3-11.0 Blood erythrocytes automated count (number/volume) 3.91 10*6 /uL 4.35-5.85 Venous blood hemoglobin measurement (mass/volume) 12.8 g/dL 11.5-16.0 Blood hematocrit (volume fraction) 37 % 35-52 Automated erythrocyte mean corpuscular volume 95 [foz_us] 80-99 Automated erythrocyte mean corpuscular hemoglobin (mass per erythrocyte) 33 pg 25-34 Automated erythrocyte mean corpuscular hemoglobin concentration measurement ( mass/volume) 34 g/dL 32-36 Automated erythrocyte distribution width ratio 12.1 % 10.0-14.5 Automated blood platelet count (count/volume) 99 10*3/uL 130-400 Automated blood platelet mean volume measurement 11.4 [foz_ us] 7.4-10.4 Automated blood neutrophils/100 leukocytes 53 % 42-75 Automated blood lymphocytes/100 leukocytes 38 % 12-44 Blood monocytes/100 leukocytes 5 % 0-12 Automated blood eosinophils/100 leukocytes 3 % 0-10 Automated blood basophils/100 leukocytes 0 % 0-10 Blood neutrophils automated count (number/volume) 2.0 10*3 1.8-7.8 Blood lymphocytes automated count (number/volume) 1.4 10*3 1.0-4.0 Blood monocytes automated count (number/volume) 0.2 10*3 0.0-1.0 Automated eosinophil count 0.1 10*3/uL 0.0-0.3 Automated blood basophil count (count/volume) 0.0 10*3/uL 0.0-0.1 PT panel in platelet poor plasma by coagulation assay - 07/13/16 07:40 Prothrombin time (PT) in platelet poor plasma by coagulation assay 14.2 s 12.2-14.7 INR in platelet poor plasma or blood by coagulation assay 1.1 0.8-1.4 Comprehensive metabolic panel - 07/13/16 07:40 Serum or plasma sodium measurement (moles/volume) 143 mmol/ L 135-145 Serum or plasma potassium measurement (moles/volume) 3.8 mmol/L 3.6-5.0 Serum or plasma chloride measurement (moles/volume) 109 mmol /L 98-107 Carbon dioxide 24 mmol/L 21-32 Serum or plasma anion gap determination (moles/volume) 10 mmol/L 5-14 Serum or plasma urea nitrogen measurement (mass/volume) 9 mg /dL 7-18 Serum or plasma creatinine measurement (mass/volume) 1.07 mg /dL 0.60-1.30 Serum or plasma urea nitrogen/creatinine mass ratio 8 NRG Serum or plasma creatinine measurement with calculation of estimated glomerular filtration rate 58 NRG Serum or plasma glucose measurement (mass/volume) 89 mg/dL 70-105 Serum or plasma calcium measurement (mass/volume) 9.1 mg/dL 8.5-10.1 Serum or plasma total bilirubin measurement (mass/volume) 0.5 mg/dL 0.1-1.0 Serum or plasma alkaline phosphatase measurement (enzymatic activity/volume) 77 U/L 40-136 Serum or plasma aspartate aminotransferase measurement (enzymatic activity/ volume) 15 U/L 5-34 Serum or plasma alanine aminotransferase measurement (enzymatic activity/volume ) 15 U/L 0-55 Serum or plasma protein measurement (mass/volume) 6.5 g/dL 6.4-8.2 Serum or plasma albumin measurement (mass/volume) 4.0 g/dL 3.2-4.5 Serum or plasma choriogonadotropin measurement (units/volume) - 07/13/16 07:40 Serum or plasma choriogonadotropin measurement (units/volume) 17 m[iU]/mL <5 Urine beta human chorionic gonadotropin (hCG) measurement - 07/13/16 08:25 Urine beta human chorionic gonadotropin (hCG) measurement POSITIVE NEGATIVE Complete urinalysis with reflex to culture - 07/13/16 08:25 Urine color determination YELLOW NRG Urine clarity determination SLIGHTLY CLOUDY NRG Urine pH measurement by test strip 5 5- 9 Specific gravity of urine by test strip 1.020 1.016-1.022 Urine protein assay by test strip, semi-quantitative 1+ NEGATIVE Urine glucose detection by automated test strip NEGATIVE NEGATIVE Erythrocytes detection in urine sediment by light microscopy 5+ NEGATIVE Urine ketones detection by automated test strip NEGATIVE NEGATIVE Urine nitrite detection by test strip NEGATIVE NEGATIVE Urine total bilirubin detection by test strip NEGATIVE NEGATIVE Urine urobilinogen measurement by automated test strip (mass/volume) NORMAL NORMAL Urine leukocyte esterase detection by dipstick 1+ NEGATIVE Automated urine sediment erythrocyte count by microscopy (number/high power field) [HPF] NRG Automated urine sediment leukocyte count by microscopy (number/high power field ) RARE NRG Bacteria detection in urine sediment by light microscopy TRACE NRG Squamous epithelial cells detection in urine sediment by light microscopy 10-25 NRG Crystals detection in urine sediment by light microscopy NONE NRG Casts detection in urine sediment by light microscopy NONE NRG Mucus detection in urine sediment by light microscopy NEGATIVE NRG Complete urinalysis with reflex to culture NO NRG Complete blood count (CBC) with automated white blood cell (WBC) differential - 07/15/16 12:22 Blood leukocytes automated count (number/volume) 4.1 10*3/ uL 4.3-11.0 Blood erythrocytes automated count (number/volume) 3.61 10*6 /uL 4.35-5.85 Venous blood hemoglobin measurement (mass/volume) 11.9 g/dL 11.5-16.0 Blood hematocrit (volume fraction) 35 % 35-52 Automated erythrocyte mean corpuscular volume 96 [foz_us] 80-99 Automated erythrocyte mean corpuscular hemoglobin (mass per erythrocyte) 33 pg 25-34 Automated erythrocyte mean corpuscular hemoglobin concentration measurement ( mass/volume) 35 g/dL 32-36 Automated erythrocyte distribution width ratio 11.9 % 10.0-14.5 Automated blood platelet count (count/volume) 102 10*3/uL 130-400 Automated blood platelet mean volume measurement 11.4 [foz_ us] 7.4-10.4 Automated blood neutrophils/100 leukocytes 55 % 42-75 Automated blood lymphocytes/100 leukocytes 38 % 12-44 Blood monocytes/100 leukocytes 4 % 0-12 Automated blood eosinophils/100 leukocytes 2 % 0-10 Automated blood basophils/100 leukocytes 0 % 0-10 Blood neutrophils automated count (number/volume) 2.2 10*3 1.8-7.8 Blood lymphocytes automated count (number/volume) 1.6 10*3 1.0-4.0 Blood monocytes automated count (number/volume) 0.2 10*3 0.0-1.0 Automated eosinophil count 0.1 10*3/uL 0.0-0.3 Automated blood basophil count (count/volume) 0.0 10*3/uL 0.0-0.1 Blood type T Indirect antibody screen panel - 07/15/16 12:22 ABO+Rh group OP NRG Transfusion band number [id number] NRG Blood group antibody screen NEGATIVE NRG Methicillin resistant Staphylococcus aureus (MRSA) screening culture - 15:25 Methicillin resistant Staphylococcus aureus (MRSA) screening culture NEG NRG Encounters ACCT No. Visit Date/Time Discharge Status Pt. Type Provider Facility Loc./Unit Complaint [id number] 07/15/2016 10:20:00 2016 21:30:00 DIS Outpatient ANNA DARNELL DO [facility] WSo 5 WKS WITH HEAVY BLEEDING [id number] 07/13/2016 06:59:00 2016 10:00:00 DIS Outpatient ISRAEL HARMON MD [facility] ER PASSED LARGE BLOOD CLOT [id number] 06/10/2016 06:44:00 2016 12:25:00 DIS Inpatient ANNA DARNELL DO [facility] LDRP INDUCTION [id number] 01/18/2015 07:10:00 2014 12:10:00 DIS Outpatient ANNA DARNELL DO [facility] LEFT LOWER QUADRANT PAIN; INCISIONAL PAIN [id number] 01/17/2015 13:00:00 2014 23:59:59 CLS Outpatient ANNA DARNELL DO [facility] PREOP LEFT LOWER QUADRANT PAIN; INCISIONAL PAIN [id number] 12/28/2014 10:12:00 2014 23:59:59 CLS Outpatient NICOLETTE SWANSON, BRIAN Navarro [facility] RAD [id number] 09/08/2014 06:00:00 2014 10:25:00 DIS Outpatient KRISTEN LEON MD [facility] [id number] 09/01/2014 12:18:00 2014 23:59:59 CLS Outpatient KRISTEN LEON MD [facility] PREOP [id number] 06/17/2013 08:03:00 2013 23:59:59 CLS Outpatient ANASTASIA HARLEY MD [facility] RAD [id number] 05/23/2013 00:30:00 2013 18:50:00 DIS Outpatient KRISTEN LEON MD [facility] [id number] 09/15/2012 07:37:00 2012 23:59:59 CLS Outpatient [id number] 08/23/2012 09:11:00 2012 23:59:59 CLS Outpatient [id number] 08/23/2012 09:04:00 2012 23:59:59 CLS Outpatient [id number] 07/17/2016 09:45:00 PEN Preadmit ELLATREY ANNA Theodora [facility] DELAYED POSTOP HEMORRHAGE [id number] 07/15/2016 09:17:00 ACT Outpatient MANN DAY ANNA Theodora [facility] PREOP DELAYED HEMORRHAGE [id number] 07/14/2014 16:35:00 Document Registration [id number] 06/16/2014 08:30:00 Document Registration
== END 2016-07-13 10:00 | disposition home or self-care (01) ==
LOC: EDUNIT# 06:58 → ER 06:59
DX: O72.2 Delayed and secondary postpartum hemorrhage (principal)
CPT/HCPCS: 36415; 76856; 80053; 81000; 84702; 84703; 85025; 85610; 87070; 87210; 87491; 87591; 96361; 96365; 96375; 96376

== ENCOUNTER 2016-07-15 10:20 | Day surgery (SDC) | payer OTHER ==
[~2016-07-15] VITALS: Ht 172.7 cm; Wt 57.2 kg
[2016-07-15] MEDS ORDERED: D5 LR IV SOLUTION 1,000 ML IV ONE (10:30)
[2016-07-15 10:45] VITALS: BP 125/85
[2016-07-15] MEDS ORDERED: METHYLERGONOVINE 0.2 MG/ML (METHERGINE) AMP ONE ×2 (11:00→18:45)
[2016-07-15] MEDS ORDERED: METHYLERGONOVINE 0.2 MG/ML (METHERGINE) AMP IM NR (11:30)
[2016-07-15] MEDS ORDERED: D5 LR IV SOLUTION 1,000 ML IV SCH (11:30)
[2016-07-15 12:29] LABS: BASOPHILS % (AUTO) 0 % (0-10); EOSINOPHILS # (AUTO) 0.1 10^3/uL (0.0-0.3); EOSINOPHILS % (AUTO) 2 % (0-10); LYMPHOCYTES # (AUTO) 1.6 X 10^3 (1.0-4.0); LYMPHOCYTES % (AUTO) 38 % (12-44); MEAN CORPUSCULAR HEMOGLOBIN 33 PG (25-34); MEAN CORPUSCULAR HGB CONC 35 G/DL (32-36); MEAN CORPUSCULAR VOLUME 96 FL (80-99); MEAN PLATELET VOLUME 11.4 FL (7.4-10.4); MONOCYTES # (AUTO) 0.2 X 10^3 (0.0-1.0); MONOCYTES % (AUTO) 4 % (0-12); NEUTROPHILS # (AUTO) 2.2 X 10^3 (1.8-7.8); NEUTROPHILS % (AUTO) 55 % (42-75); PLATELET COUNT 102 10^3/uL (130-400); RED BLOOD COUNT 3.61 10^6/uL (4.35-5.85); RED CELL DISTRIBUTION WIDTH 11.9 % (10.0-14.5); WHITE BLOOD COUNT 4.1 10^3/uL (4.3-11.0)
[2016-07-15 13:20] VITALS: BP 99/67
--- NOTE | 2016-07-15 14:44 | History & Physical-Surgical ---
HPO-Surgical History of Present Illness Chief Complaint: Heavy vaginal bleeding 5 weeks Diagnosis/Surgical Indication: Delayed/Secondary hemorrhage Procedure: Dilatation and Curretage Date of Surgery: Jul 15, 2016 Weight (Pounds): 126 Weight (Ounces): 0.0 Height (Feet): 5 Height (Inches): 8.00 Allergies and Home Medications Allergies Coded Allergies: NKANo Known Allergies (Verified Allergy, Unknown, 08/12/06) Home Medications No Active Prescriptions or Reported Meds Past Zyraljc-Lokjsv-Fovnsf Hx Patient Social History Marrital Status: Number of Children: 1 Number of living children: 1 Employed/Student: employed Alcohol Use: Denies Use Recreational Drug Use: No Smoking Status: Never a Smoker Physical Abuse Screen: No Sexual Abuse: No Recent Foreign Travel: No Contact w/other who traveled: No Recent Hopitalizations: Yes (5 WKS POST ) Recent Infectious Disease Expo: No Immunizations Up To Date Date of Influenza Vaccine: Mar 13, 2016 Seasonal Allergies Seasonal Allergies: No Surgeries HX Surgeries: Yes (LEFT ANKLE X2, DENTAL, dxls, EXPLOR ABD) Surgeries: Appendectomy Respiratory Hx Respiratory Disorders: No Cardiovascular Hx Cardiovascular Disorders: No Neurological Hx Neurological Disorders: No Reproductive System Hx Reproductive Disorders: No Sexually Transmitted Disease: No HIV/AIDS: No Female Reproductive Disorders: Denies, Endometriosis Genitourinary Hx Genitourinary Disorders: No Gastrointestinal Hx Gastrointestinal Disorders: No Musculoskeletal Hx Musculoskeletal Disorders: No Endocrine Hx Endocrine Disorders: No HEENT HX ENT Disorders: No Loss of Vision: Denies Hearing Impairment: Denies Cancer Hx Cancer: No Psychosocial Hx Psychiatric Problems: No Integumentary HX Skin/Integumentary Disorder: No Blood Transfusions Hx Blood Disorders: No Family Medical History Family Hx: Hypertension 19 FATHER (50) Thyroid disease G8 SISTER (25) Exam Vital Signs Vital Signs 07/15/16 07/15/16 10:45 13:20 Temp 96.3 Pulse 59 Resp 18 B/P (MAP) 99/67 Pulse Ox 98 O2 Delivery Room Air Capillary Refill : Labs Laboratory Tests Test 07/15/16 12:22 Range/Units White Blood Count 4.1 L 4.3-11.0 10^3/uL Red Blood Count 3.61 L 4.35-5.85 10^6/uL Hemoglobin 11.9 11.5-16.0 G/DL Hematocrit 35 35-52 % Mean Corpuscular Volume 96 80-99 FL Mean Corpuscular Hemoglobin 33 25-34 PG Mean Corpuscular Hemoglobin Concent 35 32-36 G/DL Red Cell Distribution Width 11.9 10.0-14.5 % Platelet Count 102 L 130-400 10^3/uL Mean Platelet Volume 11.4 H 7.4-10.4 FL Neutrophils (%) (Auto) 55 42-75 % Lymphocytes (%) (Auto) 38 12-44 % Monocytes (%) (Auto) 4 0-12 % Eosinophils (%) (Auto) 2 0-10 % Basophils (%) (Auto) 0 0-10 % Neutrophils # (Auto) 2.2 1.8-7.8 X 10^3 Lymphocytes # (Auto) 1.6 1.0-4.0 X 10^3 Monocytes # (Auto) 0.2 0.0-1.0 X 10^3 Eosinophils # (Auto) 0.1 0.0-0.3 10^3/uL Basophils # (Auto) 0.0 0.0-0.1 10^3/uL General Appearance: Alert, Oriented X3 HEENT: Atraumatic, PERRLA Respiratory: Clear to Auscultation Cardiovascular: Regular Rate Abdominal: Normal Bowel Sounds Neuro: Normal Gait Psych/Mental Status: Mental Status NL Assessment/Plan Assessment and Plan 36 yo 5 weeks PP from NVD Delayed/Secondary PP hemorrhage Persistent elevation in Beta- HCG Thrombocytopenia Plan: Discussed with patient proceeding with Dilatation and Curettage -Risk of procedure/benefit discussed, and is agreeable to proceed. Problems: Admission Diagnosis Diagnosis: 36 yo 5 weeks PP from NVD Delayed/Secondary PP hemorrhage Persistent elevation in Beta- HCG Thrombocytopenia ANNA DARNELL DO Jul 15, 2016 2:44 pm
[2016-07-15] MEDS ORDERED: LACTATED RINGERS 1,000 ML IV ONE (16:26)
[2016-07-15] MEDS ORDERED: proPOfol 200 MG/20 ML (DIPRIVAN) VIAL IV ONE (16:26)
[2016-07-15] MEDS ORDERED: SEVOFLURANE (ULTANE) 15 ML INHAL SOLN ONE ×2 (16:26→19:29)
[2016-07-15] MEDS ORDERED: LIDOCAINE PF 2% 10 ML (XYLOCAINE) AMP ONE (16:26)
[2016-07-15] MEDS ORDERED: MIDAZOLAM 2 MG/2 ML (VERSED) VIAL ONE (16:27)
[2016-07-15] MEDS ORDERED: fentaNYL INJECTION 100 MCG/2 ML AMP ONE ×2 (16:27→19:09)
[2016-07-15 18:06] VITALS: BP 127/79
[2016-07-15] MEDS: LACTATED RINGERS 1,000 ML IV SCH ×3 (18:10→18:50)
[2016-07-15] MEDS ORDERED: BUPIVACAINE 0.25% 30 ML (SENSORCAINE) VIAL ONE (18:13)
--- NOTE | 2016-07-15 18:35 | Discharge Inst-Women's Service ---
Discharge Inst-Women's Serv Depart Medication/Instructions Instructions Continue home meds including Motrin as needed for cramping pains. Consults/Follow Up Additional Follow Up: Yes Orders/Referrals Dr. Darnell next week Activity Activity: Activity as Tolerated Driving Instructions: You May Drive (do not drive for 24 hrs) NO SMOKING: NO SMOKING Nothing Inside Vagina: No Douching, No [place], No Tampons Diet Discharge Diet: No Restrictions Symptoms to Report to : Bleeding Excessive, Pain Increased, Fever Over 101 Degrees F, Vaginal Bleeding Increase, Questions/Concerns For Any Problems or Questions: Contact Your Physician ANNA DARNELL DO Jul 15, 2016 6:35 pm
[2016-07-15] MEDS ORDERED: OXYTOCIN (PITOCIN) 10 UNIT/ML VIAL ONE ×2 (18:57→19:29)
[2016-07-15] MEDS ORDERED: CARBOPROST (HEMABATE) 250 MCG/ML AMP IM ONE ×2 (18:57→19:28)
[2016-07-15] MEDS ORDERED: morphine INJ 10 MG/ML 1ML (SYR OR VIAL) ONE (19:10)
[2016-07-15] MEDS ORDERED: ONDANSETRON 4 MG/2 ML (SDV) Z0FRAN IV PRN (19:30)
[2016-07-15] MEDS ORDERED: morphine INJ 10 MG/ML 1ML (SYR OR VIAL) IV PRN (19:30)
[2016-07-15] MEDS ORDERED: PROMETHAZINE INJ 25 MG/ML (PHENERGAN) AMP IV PRN (19:30)
[2016-07-15 20:15] VITALS: BP 118/75
[2016-07-15 21:24] VITALS: BP 110/78
--- NOTE | 2016-07-16 13:53 | OPERATIVE REPORT ---
PROCEDURE PHYSICIAN: ANNA DARNELL DATE OF PROCEDURE: 07/15/2016 PREOPERATIVE DIAGNOSIS: 36-year-old female with late delayed hemorrhage.. POSTOPERATIVE DIAGNOSES: 36-year-old female with late delayed hemorrhage. PROCEDURE: D\T\C. SURGEON: Dr. Anna Darnell. ANESTHESIA: LMA. ESTIMATED BLOOD LOSS: 300 mL. URINE OUTPUT: 150 mL, clear drained at the end of procedure by straight catheterization. FLUIDS: 1500 mL of lactated ringer solution. FINDINGS: Findings is a slightly enlarged uterus consistent with 5 weeks status as well as a moderate to small amount of necrotic decidualized endometrial tissue and possible retained products of conception. SPECIMEN SENT: Endometrial curettings. INDICATIONS FOR THE PROCEDURE: This 36-year-old female was seen in my office on Thursday after coming to the emergency department over the weekend after 5 week onset of the hemorrhage that occurred at home. She was trickling blood over the stool which brought her to the emergency department. At that time she was given 2 doses of oral Methergine. Her hemoglobin was found to be stable. Due to this finding, she was sent home; however quantitative beta-hCG is still found to be 30. She was seen in my office the following Thursday and beta-hCG had not decline. It was still positive at 30 as well as her hemoglobin was stable at that time. I discussed the patient proceeding in an elective fashion at a scheduled time at my OR block. However, the patient had another episode of acute bleeding on the following day which was today, Thursday, she was then direct admit to the hospital. Her n.p.o. status was evaluated and we had scheduled her urgently for surgery after n.p.o. and cleared. Risk of proceeding with D\T\C was discussed with the patient in detail including risk of bleeding, infection, damaging any of the surrounding structures including but not limited to the bowel, bladder, ureter, kidneys, need for possible blood transfusion, and even hysterectomy were discussed with the patient. After all her questions were answered with her present and other family present as well, the patient's consent was obtained. The patient was taken to the operating room. OPERATIVE REPORT IN DETAIL: Once in the operating room anesthesia was found to be adequate. She was placed in the dorsal lithotomy position, prepped and draped in the normal sterile fashion. The uterus is slightly bulky and large. A weighted speculum was inserted in the patient's vagina. A right angle retractor was used to visualize the cervix. It was grasped at the 12 o'clock position using long Allis clamp. I then gently dilate the cervix using Hegar dilators, approximately 1.5 cm to allow for a banjo curette to be introduced into the endometrial cavity. Once I introduced curette I am able clear a small to moderate amount of endometrial tissue, partial, decidualized and necrotic appearing tissue as well. After this was all collected, it is sent as endometrial curettings. There is a small to moderate amount of bleeding noted that is a continuous stream afterwards. I give the patient 0.2 mg of Methergine IM and 250 mcg of Hemabate and finally 30 milliunits of Pitocin IM, all of which finally slow down the bleeding to a very slow, almost ooze noted from the external cervical os. Due to significant change in bleeding, I decide to finish the procedure at that point and remove all the other instruments from the patient's vagina. The patient tolerated the procedure well and was taken to the recovery area in stable condition. Lap sponge counts were correct at the end of the procedure, instrument count is correct as well. Job ID: [id number] Dictated Date: 07/15/2016 19:42:39 Business Librarian Date: 07/16/2016 13:40:34 / pepe MUSA
--- OUTSIDE RECORDS SUMMARY | 2016-08-17 13:59 | XMS REPORT | Continuity of Care Document ---
Author Author [facility] Organization [facility] Address Unknown Phone Unavailable Care Team Providers Care Pcts Name Role Phone PCP Unavailable Source Comments Some departments are not documenting in the electronic medical record. If you do not see the information that you expected, contact Release of Information in the Health Information Management department at [phone] for further assistance in locating additional records.Jordan [...]
--- OUTSIDE RECORDS SUMMARY | 2016-08-17 14:00 | XMS REPORT | Continuity of Care Document ---
Author Author [facility] Organization [facility] Address Unknown Phone Unavailable Allergies Active Description [...] PREPROCEDURAL LABORATORY E 06/10/2016 ANNA DARNELL DO Shamar Z11.2 ENCOUNTER FOR SCREENING FOR OTHER BACTER 06/12/2016 MANN DAY ANNA Theodora Ot D62 ACUTE POSTHEMORRHAGIC ANEMIA 06/12/2016 MANN DAY ANNA Yip Ot D69.6 THROMBOCYTOPENIA, UNSPECIFIED 06/12/2016 MANN DAY ANNA Yip Ot O69.81X0 LABOR AND DEL COMP BY CORD AROUND NECK , 06/12/2016 MANN DAY ANNA Theodora Ibanez O90.81 ANEMIA OF THE PUERPERIUM 06/12/2016 MANN DAY ANNA Yip Shamar O99.12 OTH DIS OF THE BLD/BLD-FORM ORG/IMMUN ME 06/12/2016 MANN DAY ANNA Yip Shamar Z37.0 SINGLE LIVE 06/12/2016 MANN DAY ANNA Yip Ot Z3A.37 37 WEEKS GESTATION OF 07/15/2016 EDEN SWANSON, ISRAEL Yip Ot N93.9 ABNORMAL UTERINE AND VAGINAL BLEEDING, U 07/15/2016 ISRAEL HARMON MD, Ot O72.2 DELAYED AND SECONDARY HEMORRH 07/15/2016 MANN DAY ANNA Theodora Ot O72.2 DELAYED AND SECONDARY HEMORRH 07/15/2016 MANN DAY ANNA Theodora Ot O72.3 COAGULATION DEFECTS Procedures Code Description Performed By Performed On [id number] DIVISION OF FEMALE PERINEUM, EXTERNAL AP 06/10/2016 16200MD DRAINAGE OF AMNIOTIC FL, THERAP FROM POC 06/10/2016 69U3ZUD DELIVERY OF PRODUCTS OF CONCEPTION, EXTE 06/10/2016 [...] panel - 06/10/16 07:50 ABO+Rh group OP G Transfusion band number [id number] [facility] Blood group antibody screen NEGATIVE [facility] Complete blood count (CBC) with automated white [...] identification in genital specimen by aerobe culture [id number] NRG Microscopic examination by FARZANEH preparation - [...] ABO+Rh group OP NRG Transfusion band number [id number] NRG Blood group antibody screen NEGATIVE NRG Methicillin resistant Staphylococcus aureus (MRSA) screening culture - 15:25 Methicillin resistant Staphylococcus aureus (MRSA) screening culture NEG NRG Encounters ACCT No. Visit Date/Time Discharge Status Pt. Type Provider Facility Loc./Unit Complaint [id number] 07/15/2016 10:20:00 2016 21:30:00 DIS Outpatient ANNA DARNELL DO [facility] WSo 5 WKS WITH HEAVY BLEEDING [id number] 07/13/2016 06:59:00 2016 10:00:00 DIS Outpatient EDEN SWANSON, ISRAEL Yip [facility] ER PASSED LARGE BLOOD CLOT [id number] 06/10/2016 06:44:00 2016 12:25:00 DIS Inpatient ANNA DARNELL DO [facility] LDRP INDUCTION [id number] 01/18/2015 07:10:00 2014 12:10:00 DIS Outpatient ANNA DARNELL DO [facility] LEFT LOWER QUADRANT PAIN; INCISIONAL PAIN [id number] 01/17/2015 13:00:00 2014 23:59:59 CLS Outpatient ANNA DARNELL DO [facility] PREOP LEFT LOWER QUADRANT PAIN; INCISIONAL PAIN [id number] 12/28/2014 10:12:00 2014 23:59:59 CLS Outpatient BRIAN WILL MD [facility] RAD [id number] 09/08/2014 06:00:00 2014 10:25:00 DIS Outpatient KRISTEN LEON MD [facility] [id number] 09/01/2014 12:18:00 2014 23:59:59 CLS Outpatient KRISTEN LEON MD [facility] PREOP [id number] 06/17/2013 08:03:00 2013 23:59:59 CLS Outpatient ANASTASIA HARLEY MD [facility] RAD [id number] 05/23/2013 00:30:00 2013 18:50:00 DIS Outpatient KRISTEN LEON MD [facility] [id number] 09/15/2012 07:37:00 2012 23:59:59 CLS Outpatient [id number] 08/23/2012 09:11:00 2012 23:59:59 CLS Outpatient [id number] 08/23/2012 09:04:00 2012 23:59:59 CLS Outpatient [id number] 07/17/2016 09:45:00 PEN Preadmit ANNA DARNELL DO [facility] DELAYED POSTOP HEMORRHAGE [id number] 07/15/2016 09:17:00 ACT Outpatient ANNA DARNELL DO [facility] PREOP DELAYED HEMORRHAGE [id number] 07/14/2014 16:35:00 Document Registration [id number] 06/16/2014 08:30:00 Document Registration
--- OUTSIDE RECORDS SUMMARY | 2016-08-17 21:25 | XMS REPORT | Continuity of Care Document ---
Author Author [facility] Organization [facility] Address Unknown Phone Unavailable Care Team Providers Care Transitional Living Specialist Name Role Phone PCP Unavailable Source Comments Some departments are not documenting in the electronic medical record. If you do not see the information that you expected, contact Release of Information in the Health Information Management department at [phone] for further assistance in locating additional records.Jordan [...]
--- OUTSIDE RECORDS SUMMARY | 2016-08-17 21:26 | XMS REPORT | Continuity of Care Document ---
Author Author [facility] Organization [facility] Address Unknown Phone Unavailable Allergies Active [...] Procedures Code Description Performed By Performed On [id number] DIVISION OF FEMALE PERINEUM, EXTERNAL AP 06/10/2016 48857TI DRAINAGE OF AMNIOTIC FL, THERAP FROM POC 06/10/2016 24H7ABW DELIVERY OF PRODUCTS OF CONCEPTION, EXTE 06/10/2016 [...] ABO+Rh group OP G Transfusion band number [id number] [facility] Blood group antibody screen NEGATIVE [facility] Complete blood count (CBC) with automated white [...] identification in genital specimen by aerobe culture [id number] NRG Microscopic examination by FARZANEH preparation - [...] ABO+Rh group OP NRG Transfusion band number [id number] NRG Blood group antibody screen NEGATIVE NRG Methicillin resistant Staphylococcus aureus (MRSA) screening culture - 15:25 Methicillin resistant Staphylococcus aureus (MRSA) screening culture NEG NRG Encounters ACCT No. Visit Date/Time Discharge Status Pt. Type Provider Facility Loc./Unit Complaint [id number] 07/15/2016 10:20:00 2016 21:30:00 DIS Outpatient ANNA DARNELL DO [facility] WSo 5 WKS WITH HEAVY BLEEDING [id number] 07/13/2016 06:59:00 2016 10:00:00 DIS Outpatient EDEN SWANSON, ISRAEL Yip [facility] ER PASSED LARGE BLOOD CLOT [id number] 06/10/2016 06:44:00 2016 12:25:00 DIS Inpatient ANNA DARNELL DO [facility] LDRP INDUCTION [id number] 01/18/2015 07:10:00 2014 12:10:00 DIS Outpatient ANNA DARNELL DO [facility] LEFT LOWER QUADRANT PAIN; INCISIONAL PAIN [id number] 01/17/2015 13:00:00 2014 23:59:59 CLS Outpatient ANNA DARNELL DO [facility] PREOP LEFT LOWER QUADRANT PAIN; INCISIONAL PAIN [id number] 12/28/2014 10:12:00 2014 23:59:59 CLS Outpatient BRIAN WILL MD [facility] RAD [id number] 09/08/2014 06:00:00 2014 10:25:00 DIS Outpatient KRISTEN LEON MD [facility] [id number] 09/01/2014 12:18:00 2014 23:59:59 CLS Outpatient KRISTEN LEON MD [facility] PREOP [id number] 06/17/2013 08:03:00 2013 23:59:59 CLS Outpatient ANASTASIA HARLEY MD [facility] RAD [id number] 05/23/2013 00:30:00 2013 18:50:00 DIS Outpatient KRISTEN LEON MD [facility] [id number] 09/15/2012 07:37:00 2012 23:59:59 CLS Outpatient [id number] 08/23/2012 09:11:00 2012 23:59:59 CLS Outpatient [id number] 08/23/2012 09:04:00 2012 23:59:59 CLS Outpatient [id number] 07/17/2016 09:45:00 PEN Preadmit ANNA DARNELL DO [facility] DELAYED POSTOP HEMORRHAGE [id number] 07/15/2016 09:17:00 ACT Outpatient ANNA DARNELL DO [facility] PREOP DELAYED HEMORRHAGE [id number] 07/14/2014 16:35:00 Document Registration [id number] 06/16/2014 08:30:00 Document Registration
== END 2016-07-15 21:30 | disposition home or self-care (01) ==
LOC: LDRP 10:20 → WSo 10:20 → UNDOADMOB 10:20 → LDRP 10:20 → WSo 21:30 → UNDODISOB 21:30 → EDSTATUS 07-17 13:08
PROVIDERS: ATTEND Obstetrics & Gynecology
DX: O72.2 Delayed and secondary postpartum hemorrhage (principal); O72.3 Postpartum coagulation defects
CPT/HCPCS: 36415; 85025; 86850; 86900; 86901; 87081; 88305; 96361; 96372

== ENCOUNTER → 2016-07-15 | Outpatient (CLI) | payer OTHER | LOC: PREOP 09:17 | PROVIDERS: ATTEND Obstetrics & Gynecology | DX: Z01.818 Encounter for other preprocedural examination (principal); O72.2 Delayed and secondary postpartum hemorrhage ==

== ENCOUNTER 2017-10-08 13:28 | Outpatient (RCR) | payer OTHER ==
[~2017-10-08 13:28] MED LIST changes: -FERR-74 PO; +FERR325T18 PO
== END 2018-01-06 | disposition home or self-care (01) ==
LOC: ONC 13:28
PROVIDERS: ATTEND Internal Medicine Hematology & Oncology
DX: D69.6 Thrombocytopenia, unspecified (principal); D72.819 Decreased white blood cell count, unspecified
CPT/HCPCS: 99213

== ENCOUNTER 2018-03-30 08:56 | Outpatient (RCR) | payer OTHER ==
[2018-03-29 13:00] LABS: BASOPHILS % (AUTO) 0 % (0-10); EOSINOPHILS # (AUTO) 0.1 10^3/uL (0.0-0.3); EOSINOPHILS % (AUTO) 2 % (0-10); HEMATOCRIT 40 % (35-52); HEMOGLOBIN 13.8 G/DL (11.5-16.0); LYMPHOCYTES # (AUTO) 1.5 X 10^3 (1.0-4.0); LYMPHOCYTES % (AUTO) 26 % (12-44); MEAN CORPUSCULAR HEMOGLOBIN 32 PG (25-34); MEAN CORPUSCULAR HGB CONC 35 G/DL (32-36); MEAN CORPUSCULAR VOLUME 92 FL (80-99); MEAN PLATELET VOLUME 12.3 FL (7.4-10.4); MONOCYTES # (AUTO) 0.3 X 10^3 (0.0-1.0); MONOCYTES % (AUTO) 6 % (0-12); NEUTROPHILS # (AUTO) 3.9 X 10^3 (1.8-7.8); NEUTROPHILS % (AUTO) 66 % (42-75); PLATELET COUNT 109 10^3/uL (130-400); RED CELL DISTRIBUTION WIDTH 12.7 % (10.0-14.5); WHITE BLOOD COUNT 5.8 10^3/uL (4.3-11.0)
[2018-03-29 13:17] LABS: ALANINE AMINOTRANSFERASE 15 U/L (0-55); ALBUMIN 4.2 GM/DL (3.2-4.5); ALKALINE PHOSPHATASE 52 U/L (40-136); BILIRUBIN,TOTAL 0.6 MG/DL (0.1-1.0); BUN/CREATININE RATIO 15; CALCIUM 9.1 MG/DL (8.5-10.1); CARBON DIOXIDE 23 MMOL/L (21-32); CHLORIDE 106 MMOL/L (98-107); CREATININE SERUM 0.86 MG/DL (0.60-1.30); GFR ESTIMATED > 60; GLUCOSE 87 MG/DL (70-105); POTASSIUM 4.2 MMOL/L (3.6-5.0); SODIUM 138 MMOL/L (135-145); TOTAL PROTEIN 7.1 GM/DL (6.4-8.2)
== END 2018-06-27 | disposition home or self-care (01) ==
LOC: ONC 08:56
PROVIDERS: ATTEND Internal Medicine Hematology & Oncology
DX: D69.6 Thrombocytopenia, unspecified (principal)
CPT/HCPCS: 36415; 80053; 85025; 99213

== ENCOUNTER 2022-05-28 12:48 | Outpatient (CLI) | payer OTHER ==
[~2022-05-28] VITALS: Ht 172.7 cm; Wt 62.5 kg
[~2022-05-28 12:48] MED LIST changes: +ACET-11 PO; -ACET1TAB43 PO
== END 2022-05-28 14:57 | disposition home or self-care (01) ==
LOC: PREOP 12:48
PROVIDERS: ATTEND Obstetrics & Gynecology
DX: Z01.818 Encounter for other preprocedural examination (principal)

== ENCOUNTER 2022-05-29 06:42 | Day surgery (SDC) | payer OTHER ==
[2022-05-29] VITALS (10 sets, daily range): BP systolic 92–110; BP diastolic 56–74
[~2022-05-29] VITALS: Ht 172.7 cm; Wt 62.5 kg
[2022-05-29] MEDS ORDERED: LACTATED RINGERS 1,000 ML IV PRN (06:45)
[2022-05-29] MEDS ORDERED: MIDAZOLAM 2 MG/2 ML (VERSED) VIAL ONE (07:01)
[2022-05-29] MEDS ORDERED: fentaNYL INJ 100 MCG/2 ML AMP ONE (07:01)
[2022-05-29] MEDS ORDERED: proPOfol 200 MG/20 ML (DIPRIVAN) VIAL IV ONE (07:01)
[2022-05-29] MEDS ORDERED: ONDANSETRON 4 MG/2 ML (SDV) Z0FRAN ONE (07:01)
[2022-05-29] MEDS ORDERED: LIDOCAINE PF 2% 5 ML (XYLOCAINE) VIAL ONE (07:01)
[2022-05-29] MEDS ORDERED: KETOROLAC 30 MG/ML VIAL ONE (07:02)
--- NOTE | 2022-05-29 07:19 | Progress Note-Pre Operative ---
Pre-Operative Progress Note Date of Available H&P: May 29, 2022 Date H&P Reviewed: May 29, 2022 Time H&P Reviewed: 07:05 History & Physical: H&P Reviewed, Patient Examed, No changes noted Pre-Operative Diagnosis: Missed ANNA Vela DO May 29, 2022 07:19
[2022-05-29 07:21] LABS: BASOPHILS % (AUTO) 0 % (0-10); HEMOGLOBIN 13.3 g/dL (11.5-16.0)
[2022-05-29 07:23] LABS: EOSINOPHILS # (AUTO) 0.1 10^3/uL (0.0-0.3); EOSINOPHILS % (AUTO) 3 % (0-10); HEMATOCRIT 38 % (35-52); LYMPHOCYTES # (AUTO) 1.4 10^3/uL (1.0-4.0); LYMPHOCYTES % (AUTO) 38 % (12-44); MEAN CORPUSCULAR HEMOGLOBIN 32 pg (25-34); MEAN CORPUSCULAR HGB CONC 35 g/dL (32-36); MEAN CORPUSCULAR VOLUME 92 fL (80-99); MEAN PLATELET VOLUME 12.3 fL (9.0-12.2); MONOCYTES # (AUTO) 0.2 10^3/uL (0.0-1.0); MONOCYTES % (AUTO) 5 % (0-12); NEUTROPHILS # (AUTO) 1.9 10^3/uL (1.8-7.8); NEUTROPHILS % (AUTO) 53 % (42-75); PLATELET COUNT 111 10^3/uL (130-400); WHITE BLOOD COUNT 3.6 10^3/uL (4.3-11.0)
--- NOTE | 2022-05-29 07:23 | Discharge Inst-Women's Service ---
Discharge Inst-Women's Serv Depart Medication/Instructions New, Converted or Re-Newed RX: Transmitted to Pharmacy Problems Reviewed?: Yes Consults/Follow Up Additional Follow Up: Yes Orders/Referrals Dr. Darnell in 2-3 weeks Activity Activity: Activity as Tolerated Driving Instructions: No Driving for 1 Week NO SMOKING: NO SMOKING Nothing Inside Vagina: No Douching, No [place], No Tampons Diet Discharge Diet: No Restrictions Symptoms to Report to : Bleeding Excessive, Pain Increased, Fever Over 101 Degrees F, Vaginal Bleeding Increase, Questions/Concerns For Any Problems or Questions: Contact Your Physician ANNA DARNELL DO May 29, 2022 07:23
[2022-05-29] MEDS ORDERED: KETOROLAC 30 MG/ML VIAL IVP ONE (07:30)
[2022-05-29] MEDS ORDERED: D5 LR IV SOLUTION 1,000 ML IV SCH (07:30)
[2022-05-29] MEDS ORDERED: ONDANSETRON 4 MG/2 ML (SDV) Z0FRAN IVP PRN ×2 (07:30→08:00)
[2022-05-29] MEDS ORDERED: HYDROcodone/APAP 5 MG/325 MG (LORTAB) TAB PO PRN (07:30)
[2022-05-29] MEDS ORDERED: SEVOFLURANE (ULTANE) 15 ML INHAL SOLN ONE (07:45)
[2022-05-29] MEDS ORDERED: PROMETHAZINE INJ 25 MG/ML (PHENERGAN) AMP IVP ONE (08:00)
[2022-05-29] MEDS ORDERED: HYDROmorphone 2 MG/ML VIAL (DILAUDID) IV ONE (08:00)
[2022-05-29] MEDS ORDERED: MEPERIDINE (DEMEROL) INJ 50 MG/ML IVP ONE (08:00)
[2022-05-29] MEDS ORDERED: morphine INJ 10 MG/ML 1ML (SYR OR VIAL) IVP ONE (08:00)
--- NOTE | 2022-05-29 08:33 | Anesthesia-General Post-Op ---
General Patient Condition Mental Status/LOC: Same as Preop Cardiovascular: Satisfactory Nausea/Vomiting: Absent Respiratory: Satisfactory Pain: Controlled Complications: Absent Post Op Complications Complications None Follow Up Care/Instructions Patient Instructions None needed. Anesthesia/Patient Condition Patient Condition Patient is doing well, no complaints, stable vital signs, no apparent adverse anesthesia problems. No complications reported per nursing. SHANTAL NEIL CRNA May 29, 2022 08:33
--- NOTE | 2022-05-29 12:12 | OPERATIVE REPORT ---
PREOPERATIVE DIAGNOSIS: A 41-year-old female with missed . POSTOPERATIVE DIAGNOSIS: A 41-year-old female with missed . PROCEDURE: Suction D and C. SURGEON: Anna Darnell DO ANESTHESIA: General endotracheal. ESTIMATED BLOOD LOSS: 250 mL URINE OUTPUT: 25 mL clear drained at the start of the procedure. FLUIDS: 800 mL lactated Ringer's solution. FINDINGS: Grossly normal-appearing external female genitalia, normal-appearing cervix. Moderate amount of products of conception. SPECIMEN SENT: Products of conception. INDICATIONS FOR PROCEDURE: This 41-year-old female was a patient who had sought care in my office. She had a finding of a blighted ovum noted on ultrasound that did not make change and no development of pole and no development of yolk sac. Due to concerns of a missed AB. I discussed with the patient waiting for spontaneous miscarriage at home versus proceeding with suction D and C. The patient wished to expedite the process with suction D and C. Risks of the procedure were discussed with the patient in detail. After all of her questions were answered, she was agreeable to proceed with this. Consent was obtained in the preoperative area. The patient was taken to the operating room. OPERATIVE REPORT IN DETAIL: Once in the operating room, general anesthesia was administered and found to be adequate. She was placed in the dorsal lithotomy position, prepped and draped in normal sterile fashion. Timeout was performed. Straight catheterization was performed. A weighted speculum was placed in the patient's vagina. Right angle retractor was used to visualize the cervix, was grasped at 12 o'clock position using a long Allis clamp. I then gently sound the uterine cavity depth, was found to be 10 cm. I then gently dilated the cervix using Hanks dilators to maximum dilatation of 1 cm, at which point, I advanced a #9 rigid suction Schuyler curette into the uterus. I applied [place] suction to a maximum suction of approximately 75 mmHg, at which point, I make several passes clearing the endometrial cavity of all products of conception and debris. After this was done on several passes, a gentle sharp curettage was performed with endometrium and one final pass was made with the [place] suction curette after which there was minimal to scant bleeding noted from the cervix. I then removed all the instruments from the patient's vagina. The patient tolerated the procedure well and was taken to recovery area in stable condition. Lap and sponge counts were correct at the end of the procedure. Instrument counts correct as well. Job ID: [id number] DocumentID: [id number] Dictated Date: 05/29/2022 08:07:20 Rejoiner Date: 05/29/2022 12:09:00 Dictated By: ANNA DARNELL DO
== END 2022-05-29 09:32 | disposition home or self-care (01) ==
LOC: SDC 06:42
PROVIDERS: ATTEND Obstetrics & Gynecology
DX: O02.1 Missed abortion (principal)
CPT/HCPCS: 36415; 85025; 86850; 86900; 86901; 87081

== ENCOUNTER → 2022-10-17 | Outpatient (CLI) | payer OTHER ==
--- NOTE | 2022-10-17 12:37 | Diagnostic Imaging Report ---
Indication: Routine screening. No prior mammograms are available for comparison. This is a baseline study. 2-D and 3-D bilateral screening mammography was performed with CAD. Both breasts are heterogeneously dense, limiting the sensitivity of mammography. No mass or malignant-appearing microcalcifications are seen. Axillae are unremarkable. IMPRESSION: BI-RADS Category 1 No mammographic features suspicious for malignancy are identified. ACR BI-RADS Category 1: Negative. Result letter will be mailed to the patient. Note: At least 10% of breast cancer is not imaged by mammography. Dictated by: Dictated on workstation # [id number]
== END ==
LOC: RAD 09:39
PROVIDERS: ATTEND Obstetrics & Gynecology
DX: Z12.31 Encounter for screening mammogram for malignant neoplasm of breast (principal)
CPT/HCPCS: 77063; 77067